=== PATIENT | female | born 1950 | race African-American/Black ===

== ENCOUNTER 2019-04-03 17:35 | Emergency (ER) | payer MEDICARE ==
[~2019-04-03] VITALS: Ht 160 cm; Wt 110.0 kg
[~2019-04-03 17:35] MED LIST: ALENDRONATE70 MG PO; AMLODIPINE2.5 MG PO; ATENOLOL25 MG OR; BABY ASPIRIN81 MG OR; BENAZEPRIL10 MG OR; BENAZEPRIL40 M1 OR; BENAZEPRIL40 M1 PO; FLEXERIL PO; HYDROCO/APAP1 TA9 PO; LIPITOR20 M1 PO; LISINOP/HCTZ1 TA2 PO; MEGACE40 MG PO; MELOXICAM7.5 MG PO; NAPROSYN500 MG PO; PREVPAC OR; PRILOSEC20 MG OR; ULTRAM50 M1 PO; ZOFRAN ODT4 MG PO
[2019-04-03] MEDS ORDERED: TELMISARTAN40 MG PO (18:26)
[2019-04-03] MEDS ORDERED: MOTRIN400 MG PO (18:34)
[2019-04-03 18:45] VITALS: BP 142/60
== END 2019-04-03 19:22 | disposition home or self-care (01) ==
LOC: ED 17:35
DX: S96.912A Strain of unspecified muscle and tendon at ankle and foot level, left foot, initial encounter (principal); M79.672 Pain in left foot; M25.572 Pain in left ankle and joints of left foot; X50.1XXA Overexertion from prolonged static or awkward postures, initial encounter; Y93.01 Activity, walking, marching and hiking; Y92.009 Unspecified place in unspecified non-institutional (private) residence as the place of occurrence of the external cause

== ENCOUNTER 2019-05-09 16:18 | Emergency (ER) | payer MEDICARE ==
[~2019-05-09] VITALS: Ht 160 cm; Wt 113.6 kg
[~2019-05-09 16:18] MED LIST changes: +ASPIRIN 8181 MG PO; -BABY ASPIRIN81 MG OR; +MOTRIN400 MG PO; +TELMISARTAN40 MG PO
[2019-05-09] MEDS ORDERED: HYDROCHLOROT25 MG PO (16:36)
[2019-05-09] MEDS ORDERED: CLINDAMYCIN300 M1 PO (17:25)
[2019-05-09] MEDS ORDERED: PERIDEX0.12 % MT (17:25)
[2019-05-09 17:30] VITALS: BP 131/54
== END 2019-05-09 17:30 | disposition home or self-care (01) ==
LOC: ED 16:18
DX: K05.10 Chronic gingivitis, plaque induced (principal); K08.89 Other specified disorders of teeth and supporting structures; I10 Essential (primary) hypertension